=== PATIENT | female | born 1985 | race Two or more races ===

== ENCOUNTER 2024-08-30 04:56 | Inpatient (IN) ==
[2024-08-30 05:09] VITALS: BMI 27.3
[2024-08-30 05:35] LABS: BASOPHILS % (AUTO) 0.2 % (0.2-1.0); EOSINOPHILS % (AUTO) 0.2 % (0.9-2.9); HEMATOCRIT 34.3 % (36.0-47.0); HEMOGLOBIN 11.7 g/dL (12.0-16.0); LYMPHOCYTES # (AUTO) 1.9 X10^3/uL (1.3-2.9); LYMPHOCYTES % (AUTO) 14.6 % (21.0-51.0); MEAN CORPUSCULAR HEMOGLOBIN 30.2 pg (27.0-34.0); MEAN CORPUSCULAR HGB CONC 34.1 g/dL (33.0-35.0); MEAN CORPUSCULAR VOLUME 88.4 fL (80.0-100.0); MEAN PLATELET VOLUME 10.8 fL (7.4-11.0); MONOCYTES # (AUTO) 0.7 x10^3/uL (0.3-0.8); MONOCYTES % (AUTO) 5.5 % (0.0-13.0); NEUTROPHILS # (AUTO) 10.4 x10^3/uL (2.2-4.8); NEUTROPHILS % (AUTO) 79.5 % (42.0-75.0); PLATELET COUNT 186 X10^3/uL (150.0-450.0); RED BLOOD COUNT 3.88 X10^6/uL (3.5-5.4); RED CELL DISTRIBUTION WIDTH 13.8 % (11.6-16.5); WHITE BLOOD COUNT 13.1 X10^3/uL (3.6-10.0)
[2024-08-30 05:42] LABS: BILIRUBIN,URINE NEGATIVE (NEGATIVE); BLOOD/HEMOGLOBIN,URINE 1+ (NEGATIVE); GLUCOSE, URINE NEGATIVE (NEGATIVE); KETONES,URINE NEGATIVE (NEGATIVE); LEUKOCYTE ESTERASE ,URINE 1+ (NEGATIVE); NITRITES,URINE NEGATIVE (NEGATIVE); PROTEIN,URINE 2+ (NEGATIVE); UROBILINOGEN,URINE NORMAL (NORMAL)
[2024-08-30 05:47] LABS: BLOOD UREA NITROGEN 9 mg/dL (7-18); CARBON DIOXIDE 25.3 mmol/L (21-32); CHLORIDE 101 mmol/L (98-107); CREATININE 0.53 mg/dL (0.55-1.02); GLUCOSE 98 mg/dL (65-99); POTASSIUM 3.5 mmol/L (3.5-5.1); SODIUM 136 mmol/L (136-145); eGFR NON BLACK RACES > 60 (>60)
[2024-08-30 05:49] LABS: APPEARANCE,URINE CLOUDY (CLEAR); COLOR,URINE YELLOW (YELLOW)
[2024-08-30 05:50] LABS: BACTERIA,URINE TRACE /HPF (NEGATIVE); SQUAMOUS EPITHELIAL CELL,UR FEW /HPF (NEGATIVE)
[2024-08-30] MEDS ORDERED: ZOFRAN INJ 4 MG VIAL IVP PRN (06:03)
[2024-08-30] MEDS ORDERED: REGLAN INJ 10 MG VIAL IVP PRN (06:03)
[2024-08-30] MEDS: LR 1,000 ML IV 1,000 ML IV SCH (06:20)
[2024-08-30] MEDS: LR 1,000 ML IV 1,000 ML IV ONE (07:27)
[2024-08-30] MEDS: OXYTOCIN 20 UNIT/1,000 ML-NS 20 UNIT/1,000 ML PLAST..BAG IV PRN (07:30)
[2024-08-30] MEDS: NUBAIN INJ 20 MG AMP IVP PRN (08:30)
[2024-08-30] MEDS: PITOCIN IVP ONE (09:06)
[2024-08-30] MEDS: BETADINE SOLN ONE (09:06)
[2024-08-30] MEDS ORDERED: MOTRIN TAB 800 MG PO PRN (09:34)
[2024-08-30] MEDS: PITOCIN ONE (10:05)
[2024-08-30] MEDS: NUBAIN INJ 10 MG AMP ONE (10:06)
[2024-08-30] MEDS ORDERED: AMBIEN PO PRN (10:13)
[2024-08-30] MEDS: OXYTOCIN 20 UNIT/1,000 ML-NS 20 UNIT/1,000 ML PLAST..BAG IV SCH (10:33)
[2024-08-31 05:12] LABS: HEMATOCRIT 28.8 % (36.0-47.0); HEMOGLOBIN 9.9 g/dL (12.0-16.0)
[2024-08-31] MEDS ORDERED: NS 100 ML IV 100 ML with VENOFER 400 MG IV ONE (09:47)
[2024-08-31] MEDS ORDERED: NS 100 ML IV 100 ML with VENOFER 200 MG IV ONE (12:51)
[2024-08-31 13:28] VITALS: BP 132/66; PULSE 62; RESP 20; TEMP 98.2; O2SAT 99
== END 2024-08-31 16:20 | disposition home or self-care (01) | DRG 807 ==
LOC: ER 04:56 → LD 06:00 → MED/SURG 10:34
PROVIDERS: ADMIT Obstetrics & Gynecology Obstetrics; ATTEND Obstetrics & Gynecology Obstetrics